=== PATIENT | female | born 2000 | race Caucasian/White ===

== ENCOUNTER 2025-03-04 16:16 | Outpatient (REF) | payer MEDICAID, SELFPAY ==
[2025-03-04 18:33] LABS: HCT 41.3 % (36.0-46.0); HGB 13.7 g/dL (11.2-15.7); MCH 29.8 pg (27.0-33.0); MCHC 33.2 % (32.0-36.0); MCV 90 fL (80-95); MPV 10.3 fL (8.0-11.0); Platelet Count 361 10^3/uL (130-400); RBC 4.60 10^6/uL (3.93-5.22); RDW 12.0 % (11.7-14.6); RDW-SD 39.4 fL; WBC 7.99 10^3/uL (4.4-10.8)
[2025-03-04 18:58] LABS: ALT 48 U/L (14-59); AST 27 U/L (15-37); Albumin 4.0 g/dL (3.4-5.0); Alkaline Phosphatase 59 U/L (46-116); Anion Gap 9.4 mmol/L (3-11); BUN 12 mg/dL (7-18); Bilirubin, Total 0.4 mg/dL (0.2-1.0); CO2 27.6 mmol/L (21.0-32.0); Calcium 9.0 mg/dL (8.5-10.1); Calculated LDL 87 mg/dL (<100); Chloride 105 mmol/L (98-107); Cholesterol 146 mg/dL (<200); Estimated GFR 127.67 (mL/min/1.73m2); Glucose 80 mg/dL (74-106); HDL Cholesterol 44 mg/dL (>or=50); Potassium 4.0 mmol/L (3.5-5.1); Sodium 142 mmol/L (136-145); Total Protein 7.1 g/dL (6.4-8.2); Triglyceride 76 mg/dL (<150)
[2025-03-05 18:22] LABS: HBs Antibody, Quant <3.1 mIU/mL (See Note); Hepatitis B Surface Antigen Negative (Negative)
[2025-03-05 18:23] LABS: Hepatitis C Ab w Rflx HCV PCR Negative (Negative)
[2025-03-05 18:53] LABS: HIV-1/2 Ag & Ab Screen Negative (Negative)
[2025-03-08 12:31] LABS: Chlamydia Result Negative (Negative); GC Result Negative (Negative)
[2025-03-08 12:33] LABS: Syphilis Serology (RPR) Negative (Negative)
== END 2025-03-04 16:17 | disposition home or self-care (01) ==
LOC: LBN 16:16
PROVIDERS: PCP Nurse Practitioner Family; Visit Provider Nurse Practitioner Family
DX: Z11.3 Encounter for screening for infections with a predominantly sexual mode of transmission (principal); Z13.220 Encounter for screening for lipoid disorders; R23.3 Spontaneous ecchymoses
CPT/HCPCS: 80053; 80061; 85027; 86704; 86706; 86803; 87340; 87389; 87491; 87591; 86592